=== PATIENT | female | born 1960 | race African-American/Black ===

== ENCOUNTER 2023-06-28 08:13 | Outpatient (CLI) | payer MEDICARE | END 2023-06-28 08:14 | disposition home or self-care (01) | LOC: RAD 08:13 | PROVIDERS: ATTEND Internal Medicine Critical Care Medicine | DX: R06.00 Dyspnea, unspecified (principal) | CPT/HCPCS: 71046 ==

== ENCOUNTER 2023-08-31 08:52 | Inpatient (IN) | payer OTHER, MEDICARE ==
[2023-08-31] MEDS ORDERED: Dicyclomine 20 MG TAB ONE (09:15)
[2023-08-31] MEDS ORDERED: Ketorolac Tromethamine 30 MG (1 mL) VIAL ONE (09:15)
[2023-08-31 09:30] LABS: #Eosinphils 0.5 thou/uL (0.0-0.7); #Monocytes 0.3 thou/uL (0.11-0.59); #Neutrophils 4.3 thou/uL (1.40-6.50); %Basophils 0.6 % (0.0-1.0); %Eosinophils 6.4 % (0.0-10.0); %Lymphocytes 28.8 % (21.0-51.0); %Neutrophils 59.9 % (42.0-75.0); Hematocrit 43.2 % (36.0-47.0); Hemoglobin 14.6 g/dL (12.0-16.0); Mean Corpuscular HGB CONC 33.8 g/dL (32.0-36.0); Mean Corpuscular Volume 100.7 fl (78.0-98.0); Platelet Count 143 10x3/uL (130-400); RBC Distribution Width 12.8 % (11.5-14.5); Red Blood Cell (RBC) Count 4.29 mill/uL (4.20-5.40); White Blood Cell (WBC) Count 7.2 10x3/uL (4.8-10.8)
[2023-08-31 09:52] LABS: ALT (SGPT) 13 U/L (8-55); AST (SGOT) 18 U/L (5-34); Alkaline Phosphatase 104 U/L (40-110); Anion Gap 12 mmol/L (10-20); BUN (Urea Nitrogen) 13 mg/dL (9.8-20.1); Bilirubin, Total 0.5 mg/dL (0.2-1.2); Calc. Creatinine Clearance 0 mL/min (70-130); Calcium 9.2 mg/dL (7.8-10.44); Carbon Dioxide 26 mmol/L (23-31); Chloride 104 mmol/L (98-107); Estimated GFR 86; Globulin 2.6 g/dL (2.4-3.5); Glucose 116 mg/dL (80-115); Lipase 16 U/L (8-78); Potassium 3.8 mmol/L (3.5-5.1); Protein, Total 6.6 g/dL (5.8-8.1); Sodium 138 mmol/L (136-145)
[2023-08-31 09:56] LABS: Troponin I Less than 0.010 ng/mL (< 0.028)
[2023-08-31] MEDS ORDERED: Ondansetron PF 4 MG/2 ML Vial IVP PRN (11:19)
[2023-08-31] MEDS ORDERED: Ipratropium/Albuterol 3 ML NEB NEB PRN (11:19)
[2023-08-31] MEDS ORDERED: HumaLOG 300 UNITS/3 ML VIAL SC PRN (11:22)
[2023-08-31] MEDS ORDERED: Glucagon 1 MG/ML KIT IM PRN (11:22)
[2023-08-31] MEDS ORDERED: Dextrose 5% in Water 1,000 ML IV PRN (11:22)
[2023-08-31] MEDS ORDERED: Dextrose 50% Abboject 50 ML SYRINGE SLOW IVP PRN (11:22)
[2023-08-31] MEDS ORDERED: traMADol HCl 50 MG TAB ONE (11:34)
[2023-08-31] MEDS: Acetaminophen/Codeine 30-300mg Tablet PO SCH ×2 (13:44→18:07)
[2023-08-31] MEDS: Sodium Chloride 0.9% 1,000 ML IV SCH (13:45)
[2023-08-31 13:50] VITALS: BMI 35.6
[2023-08-31] MEDS ORDERED: Cyclobenzaprine 10 MG TAB PO PRN (14:38)
[2023-08-31] MEDS ORDERED: Iopamidol-370 76% 500 ML MDV (1 ML CHARGE) ONE (15:04)
[2023-08-31] MEDS: Gabapentin 300 MG CAP PO SCH ×3 (16:54→22:17)
[2023-08-31] MEDS: Morphine 2 MG/ML VIAL SLOW IVP PRN (18:48)
[2023-08-31] MEDS ORDERED: Albuterol 200 PUFF (6.7GM INHALER) INH PRN (19:35)
[2023-08-31] MEDS ORDERED: VARENICLINE TARTRATE PO SCH (19:45)
[2023-08-31] MEDS ORDERED: traZODone HCl 150 MG TAB PO SCH (21:00)
[2023-08-31] MEDS: Famotidine/PF 20 mg/2ml Vial SLOW IVP SCH (21:32)
[2023-09-01] MEDS: Acetaminophen/Codeine 30-300mg Tablet PO SCH ×3 (00:46→11:43)
[2023-09-01] MEDS: Sodium Chloride 0.9% 1,000 ML IV SCH ×2 (00:48→09:59)
[2023-09-01 05:23] LABS: #Eosinphils 0.5 thou/uL (0.0-0.7); #Monocytes 0.4 thou/uL (0.11-0.59); #Neutrophils 2.6 thou/uL (1.40-6.50); %Basophils 0.6 % (0.0-1.0); %Eosinophils 7.6 % (0.0-10.0); %Monocytes 5.8 % (0.0-10.0); %Neutrophils 41.8 % (42.0-75.0); Hematocrit 38.6 % (36.0-47.0); Hemoglobin 12.8 g/dL (12.0-16.0); Mean Corpuscular HGB CONC 33.2 g/dL (32.0-36.0); Mean Corpuscular Hemoglobin 33.5 pg (27.0-31.0); Platelet Count 132 10x3/uL (130-400); Red Blood Cell (RBC) Count 3.82 mill/uL (4.20-5.40); White Blood Cell (WBC) Count 6.2 10x3/uL (4.8-10.8)
[2023-09-01 05:49] LABS: Anion Gap 9 mmol/L (10-20); BUN (Urea Nitrogen) 13 mg/dL (9.8-20.1); Calc. Creatinine Clearance 117 mL/min (70-130); Calcium 8.7 mg/dL (7.8-10.44); Carbon Dioxide 29 mmol/L (23-31); Chloride 109 mmol/L (98-107); Estimated GFR 81; Glucose 109 mg/dL (80-115); Potassium 3.5 mmol/L (3.5-5.1); Sodium 143 mmol/L (136-145)
[2023-09-01] MEDS ORDERED: metFORMIN 500 MG TAB PO SCH (08:00)
[2023-09-01] MEDS ORDERED: PARoxetine 20 MG TAB PO SCH ×2 (09:00)
[2023-09-01] MEDS ORDERED: Losartan 25 MG TAB PO SCH (09:00)
[2023-09-01] MEDS: Gabapentin 300 MG CAP PO SCH (09:51)
[2023-09-01] MEDS: Famotidine/PF 20 mg/2ml Vial SLOW IVP SCH (09:51)
[2023-09-01] MEDS: Morphine 2 MG/ML VIAL SLOW IVP PRN (09:52)
[2023-09-01 10:41] VITALS: BP 161/73; TEMP 98.3
== END 2023-09-01 12:24 | disposition home or self-care (01) | DRG 443 ==
LOC: ERS 08:52 → SURG B 11:19
PROVIDERS: ADMIT Student in an Organized Health Care Education/Training Program; ATTEND Student in an Organized Health Care Education/Training Program
DX: S36.112A Contusion of liver, initial encounter (principal); V49.9XXA Car occupant (driver) (passenger) injured in unspecified traffic accident, initial encounter; F31.9 Bipolar disorder, unspecified; I10 Essential (primary) hypertension; E11.9 Type 2 diabetes mellitus without complications; E78.5 Hyperlipidemia, unspecified; F43.10 Post-traumatic stress disorder, unspecified; F17.210 Nicotine dependence, cigarettes, uncomplicated
CPT/HCPCS: 36415; 36416; 71260; 74177; 80048; 80053; 83690; 84484; 85025; 93005; 96374; G0390; J1885; J2272; J7050; Q9967; S0028

== ENCOUNTER 2024-01-25 05:59 | Day surgery (SDC) | payer MEDICARE ==
[2024-01-24 10:32] VITALS: BMI 31.6
[2024-01-25] MEDS ORDERED: Ketamine In 0.9 % NaCl 50 MG/5 ML SYRINGE ONE (07:15)
[2024-01-25] MEDS ORDERED: Midazolam HCl 2 mg/2 ml Vial ONE (07:19)
[2024-01-25] MEDS ORDERED: PROPOFOL 20 ML ONE (07:20)
[2024-01-25] MEDS ORDERED: Glycopyrrolate 0.2 MG/ML 5 ML SYRINGE ONE (07:55)
== END 2024-01-25 09:55 | disposition home or self-care (01) ==
LOC: SDC 05:59
PROVIDERS: ATTEND Internal Medicine Gastroenterology
PROC: 0DJ08ZZ Inspection of Upper Intestinal Tract, Via Natural or Artificial Opening Endoscopic (ICD-10-PCS; principal; 2024-01-25)
PROC: 0D758ZZ Dilation of Esophagus, Via Natural or Artificial Opening Endoscopic (ICD-10-PCS; 2024-01-25)
DX: Z12.11 Encounter for screening for malignant neoplasm of colon (principal); K22.2 Esophageal obstruction; K44.9 Diaphragmatic hernia without obstruction or gangrene; K57.30 Diverticulosis of large intestine without perforation or abscess without bleeding; E11.9 Type 2 diabetes mellitus without complications; I11.0 Hypertensive heart disease with heart failure; I50.32 Chronic diastolic (congestive) heart failure; E78.5 Hyperlipidemia, unspecified; K21.9 Gastro-esophageal reflux disease without esophagitis; J44.9 Chronic obstructive pulmonary disease, unspecified; H10.9 Unspecified conjunctivitis; L98.9 Disorder of the skin and subcutaneous tissue, unspecified; Z79.82 Long term (current) use of aspirin; Z79.84 Long term (current) use of oral hypoglycemic drugs; Z79.899 Other long term (current) drug therapy
CPT/HCPCS: 43235; 43450; J2250; J2704; J3490

== ENCOUNTER 2024-07-03 08:05 | Outpatient (CLI) | payer MEDICARE | END 2024-07-03 08:06 | disposition home or self-care (01) | LOC: CT 08:05 | PROVIDERS: ATTEND Physician Assistant Medical | DX: K21.9 Gastro-esophageal reflux disease without esophagitis (principal); K44.9 Diaphragmatic hernia without obstruction or gangrene; R10.30 Lower abdominal pain, unspecified; R19.7 Diarrhea, unspecified; R63.4 Abnormal weight loss; R07.89 Other chest pain | CPT/HCPCS: 36415; 74177; 82565 ==

== ENCOUNTER 2025-03-17 14:51 | Outpatient (CLI) | payer MEDICARE, OTHER | END 2025-03-17 14:52 | disposition home or self-care (01) | LOC: RAD 14:51 | PROVIDERS: ATTEND Internal Medicine Critical Care Medicine | DX: R06.00 Dyspnea, unspecified (principal) | CPT/HCPCS: 71046 ==